=== PATIENT | male | born 1935 | race Caucasian/White ===

== ENCOUNTER 2018-04-12 10:36 | Inpatient (IN) | payer MEDICARE, OTHER ==
[~2018-04-12] VITALS: Ht 177.8 cm; Wt 96.7 kg
[2018-04-12] MEDS ORDERED: ALBUTEROL SULF 2.5 MG/0.5ML(0.5%) NEB SOLN NEB ONE (11:00)
[2018-04-12] MEDS ORDERED: IPRATROPIUM BROM 0.5 MG/2.5ML INH SOL NEB ONE (11:00)
[2018-04-12] MEDS ORDERED: methylPREDNISolone SOD SUCC 125 MG/2 ML VL IV ONE (11:00)
[2018-04-12 11:14] LABS: Basophils # (auto) 0.1 uL; Basophils % (auto) 0.7 % (0.0-2.0); Eosinophils # (auto) 0.4 uL; Eosinophils % (auto) 3.2 % (0.0-7.0); Hematocrit 37.6 % (41.0-53.0); Hemoglobin 11.8 g/dL (13.5-17.5); Lymphocytes # (auto) 1.3 uL; Lymphocytes % (auto) 10.1 % (10.0-50.0); Mean Corpuscular Hemoglobin 33.8 pg (28.0-32.0); Mean Corpuscular Hgb Conc. 31.3 g/dL (32.0-36.0); Mean Corpuscular Volume 108.1 fL (80.0-100.0); Monocytes # (auto) 0.9 uL; Monocytes % (auto) 7.1 % (0.0-12.0); Neutrophils # (auto) 10.4 uL; Neutrophils % (auto) 78.9 % (37.0-80.0); Nucleated Red Blood Cells % 0.1 %; Platelet Count (auto) 238 10^3/uL (140-450); Red Blood Cells 3.48 10^6/uL (4.5-5.90); Red Cell Distribution Width 15.3 % (11.8-14.3); White Blood Cell 13.2 10^3/uL (4.4-10.8)
[2018-04-12 11:30] LABS: BUN/Creatinine Ratio 15.9; Potassium 4.2 mmol/L (3.5-5.1)
[2018-04-12] MEDS ORDERED: ACETAMINOPHEN 500 MG TAB PO ONE (11:30)
[2018-04-12 11:31] LABS: Albumin 3.7 g/dL (3.4-5.0); Bilirubin, Total 0.6 mg/dL (0.2-1.0); Calcium 8.9 mg/dL (8.5-10.1); Magnesium 2.6 mg/dL (1.6-2.6); Total Protein 7.2 g/dL (6.4-8.2)
[2018-04-12] MEDS ORDERED: METO25TA5 PO (14:37)
[2018-04-12] MEDS ORDERED: TRAM50TA2 PO (14:37)
[2018-04-12] MEDS ORDERED: RANO500T2 PO (14:37)
[2018-04-12] MEDS ORDERED: APIX5TAB PO (14:37)
[2018-04-12] MEDS ORDERED: ALL300T PO (14:37)
[2018-04-12] MEDS ORDERED: DILT180C88 PO (14:37)
[2018-04-12] MEDS ORDERED: DRON400T PO (14:37)
[2018-04-12] MEDS ORDERED: PRAV20TA3 PO (14:37)
[2018-04-12] MEDS ORDERED: FURO20TA3 PO (14:37)
[2018-04-12] MEDS ORDERED: DILTIAZEM HCL 120MG ER CAP PO ONE (15:30)
[2018-04-12] MEDS ORDERED: ALLOPURINOL 100 MG TAB PO ONE (15:30)
[2018-04-12] MEDS ORDERED: METOPROLOL TARTRATE 25 MG TAB PO ONE (15:45)
[2018-04-12] MEDS ORDERED: MORPHINE SULFATE 8mg/ml INJ SDV IV PRN ×2 (15:45)
[2018-04-12] MEDS ORDERED: DEXTROSE (50%) 50ML SYRG IV PRN (15:45)
[2018-04-12] MEDS ORDERED: FUROSEMIDE 20 MG TAB PO ONE (15:45)
[2018-04-12] MEDS ORDERED: TEMAZEPAM 15 MG CAP PO PRN (15:45)
[2018-04-12] MEDS ORDERED: ONDANSETRON HCL 4 MG/2 ML VIAL IV PRN (15:45)
[2018-04-12] MEDS ORDERED: DOCUSATE SOD 100 MG CAP PO PRN (15:45)
[2018-04-12] MEDS ORDERED: NITROGLYCERIN 0.4 MG SL TAB SL PRN (15:45)
[2018-04-12] MEDS ORDERED: traMADol HCL 50 MG TAB PO PRN (15:45)
[2018-04-12] MEDS ORDERED: cefTRIAXone 1GM/10ml IVPUSH 10 ML IV ONE (15:45)
[2018-04-12] MEDS ORDERED: ACETAMINOPHEN 325 MG TAB PO PRN (15:45)
[2018-04-12] MEDS ORDERED: ETOMIDATE (2MG/ML) 20ML VIAL IV ONE (16:05)
[2018-04-12] MEDS ORDERED: MIDAZOLAM DRIP 50 mg/50mL 50 ML IV ONE ×2 (16:05→18:38)
[2018-04-12] MEDS ORDERED: SUCCINYLCHOLINE CHLORIDE 20 MG/ML 10ML VIAL IV ONE (16:06)
[2018-04-12] MEDS ORDERED: AZITHROMYCIN 500MG/ 250ML 250 ML IV ONE (16:30)
[2018-04-12] MEDS ORDERED: NOREPINEPHRINE 8 MG/250ML KIT 250 ML IV ONE (16:35)
[2018-04-12] MEDS ORDERED: PROPOFOL 100 ML IV ONE (16:43)
[2018-04-12] MEDS ORDERED: SODIUM CHLORIDE 0.9% 1,000 ML IV ONE ×3 (16:45→17:45)
[2018-04-12] MEDS: NOREPINEPHRINE 8 MG/250ML KIT 250 ML IV SCH (16:45)
[2018-04-12] MEDS: PROPOFOL 100 ML IV SCH (16:54)
[2018-04-12] MEDS ORDERED: FAMOTIDINE 20 MG TAB PO SCH (17:00)
[2018-04-12] MEDS: ACCU-CHEK COMFORT CURVE STRIP VI SCH ×2 (17:25→22:09)
[2018-04-12] MEDS: InsuLIN REG 1unit/0.01ml Soln (100units/ml) SC SCH ×2 (17:30→22:21)
[2018-04-12 18:27] VITALS: BP 112/69
[2018-04-12] MEDS: ALBUTEROL SULF 2.5 MG/0.5ML(0.5%) NEB SOLN NEB SCH (18:27)
[2018-04-12] MEDS: IPRATROPIUM BROM 0.5 MG/2.5ML INH SOL NEB SCH (18:27)
[2018-04-12] MEDS ORDERED: FAMOTIDINE (10MG/ML) 2ML VL IV ONE (18:30)
[2018-04-12] MEDS: MIDAZOLAM DRIP 50 mg/50mL 50 ML IV SCH (18:51)
[2018-04-12] MEDS ORDERED: SODIUM BICARBONATE 8.4% INJ 50ML SYRINGE ONE (18:55)
[2018-04-12] MEDS ORDERED: SODIUM BICARBONATE 8.4 % INJ 50ML VIAL IV ONE (19:00)
[2018-04-12 19:08] LABS: Urine Amorphous Crystal FEW /hpf (None Seen); Urine Bacteria NONE SEEN /hpf (None Seen); Urine Blood 2+ /uL (Negative); Urine Hyaline Cast FEW /lpf (0 - 2); Urine Mucus FEW (None Seen); Urine Specific Gravity 1.025 (1.001-1.035); Urine WBC 1 /hpf (0 - 3)
[2018-04-12] MEDS: fentaNYL Drip 2500mCg/250mlNS 250 ML IV SCH (19:44)
[2018-04-12 19:57] VITALS: BP 109/71
[2018-04-12 20:53] VITALS: BP 109/71
[2018-04-12] MEDS: METOPROLOL TARTRATE 25 MG TAB PO SCH (22:00)
[2018-04-12] MEDS: DRONEDARONE HCL 400 MG TAB PO SCH (22:00)
[2018-04-12] MEDS: APIXABAN 5 MG TAB PO SCH (22:20)
[2018-04-12] MEDS: SODIUM CHLOR 0.9% PF (SALINE LOCK) 10ML VIAL/SYR IV SCH (22:20)
[2018-04-12] MEDS: PRAVASTATIN SODIUM 20 MG TAB PO SCH (22:21)
[2018-04-12 22:35] VITALS: BP 126/81
[2018-04-13] VITALS (67 sets, daily range): BP systolic 88–128; BP diastolic 46–77
[2018-04-13] MEDS: ALBUTEROL SULF 2.5 MG/0.5ML(0.5%) NEB SOLN NEB SCH ×4 (00:29→18:40)
[2018-04-13] MEDS: IPRATROPIUM BROM 0.5 MG/2.5ML INH SOL NEB SCH ×4 (00:29→18:40)
[2018-04-13 05:14] LABS: Basophils # (auto) 0.1 uL; Basophils % (auto) 0.6 % (0.0-2.0); Eosinophils # (auto) 0 uL; Eosinophils % (auto) 0.1 % (0.0-7.0); Hemoglobin 10.5 g/dL (13.5-17.5); Lymphocytes # (auto) 1.3 uL; Lymphocytes % (auto) 10.2 % (10.0-50.0)
[2018-04-13 05:16] LABS: Hematocrit 32.1 % (41.0-53.0); Mean Corpuscular Hemoglobin 34.4 pg (28.0-32.0); Mean Corpuscular Hgb Conc. 32.6 g/dL (32.0-36.0); Mean Corpuscular Volume 105.6 fL (80.0-100.0); Monocytes # (auto) 1.4 uL; Monocytes % (auto) 11.3 % (0.0-12.0); Neutrophils # (auto) 9.8 uL; Neutrophils % (auto) 77.8 % (37.0-80.0); Platelet Count (auto) 237 10^3/uL (140-450); Red Blood Cells 3.04 10^6/uL (4.5-5.90); White Blood Cell 12.6 10^3/uL (4.4-10.8)
[2018-04-13 05:32] LABS: Calcium 8.2 mg/dL (8.5-10.1); Potassium 4.4 mmol/L (3.5-5.1)
[2018-04-13 05:36] LABS: BUN/Creatinine Ratio 16.5
[2018-04-13 05:37] LABS: Bilirubin, Total 0.4 mg/dL (0.2-1.0); Total Protein 6.4 g/dL (6.4-8.2)
[2018-04-13] MEDS: ACCU-CHEK COMFORT CURVE STRIP VI SCH ×4 (06:08→22:23)
[2018-04-13] MEDS: SODIUM CHLOR 0.9% PF (SALINE LOCK) 10ML VIAL/SYR IV SCH ×3 (06:08→22:26)
[2018-04-13] MEDS: FUROSEMIDE 20 MG TAB PO SCH ×2 (06:27→17:55)
[2018-04-13] MEDS: InsuLIN REG 1unit/0.01ml Soln (100units/ml) SC SCH ×4 (06:27→22:00)
[2018-04-13] MEDS: DRONEDARONE HCL 400 MG TAB PO SCH ×2 (08:37→22:22)
[2018-04-13] MEDS: METOPROLOL TARTRATE 25 MG TAB PO SCH ×2 (09:10→22:22)
[2018-04-13] MEDS: cefTRIAXone 1GM/10ml IVPUSH 10 ML IV SCH (09:17)
[2018-04-13] MEDS: AZITHROMYCIN 500MG/ 250ML 250 ML IV SCH (09:17)
[2018-04-13] MEDS ORDERED: DILTIAZEM HCL 120MG ER CAP PO SCH (10:00)
[2018-04-13] MEDS: MULTIPLE VITAMIN TAB PO SCH (11:29)
[2018-04-13] MEDS: ALLOPURINOL 100 MG TAB PO SCH (11:29)
[2018-04-13] MEDS: APIXABAN 5 MG TAB PO SCH ×2 (11:29→22:22)
[2018-04-13] MEDS: FAMOTIDINE (10MG/ML) 2ML VL IV SCH (11:29)
[2018-04-13] MEDS: RANOLAZINE ER 500 MG TAB PO SCH (11:40)
[2018-04-13] MEDS: MIDAZOLAM DRIP 50 mg/50mL 50 ML IV SCH (14:35)
[2018-04-13] MEDS: ALBUMIN 25% 100 ML IV SCH ×2 (15:35→22:23)
[2018-04-13] MEDS: NOREPINEPHRINE 8 MG/250ML KIT 250 ML IV SCH (16:45)
[2018-04-13] MEDS: PROPOFOL 100 ML IV SCH (16:54)
[2018-04-13] MEDS: fentaNYL Drip 2500mCg/250mlNS 250 ML IV SCH (18:52)
[2018-04-13] MEDS: PRAVASTATIN SODIUM 20 MG TAB PO SCH (22:22)
[2018-04-13] MEDS: methylPREDNISolone SOD SUCC 125 MG/2 ML VL IV SCH (22:22)
[2018-04-14] VITALS (106 sets, daily range): BP systolic 76–117; BP diastolic 34–76
[2018-04-14] MEDS: ALBUTEROL SULF 2.5 MG/0.5ML(0.5%) NEB SOLN NEB SCH ×5 (00:36→23:56)
[2018-04-14] MEDS: IPRATROPIUM BROM 0.5 MG/2.5ML INH SOL NEB SCH ×5 (00:36→23:56)
[2018-04-14] MEDS: PROPOFOL 100 ML IV SCH ×3 (00:52→17:12)
[2018-04-14] MEDS: MIDAZOLAM DRIP 50 mg/50mL 50 ML IV SCH ×2 (00:53→03:08)
[2018-04-14 04:01] LABS: Basophils # (auto) 0 uL; Eosinophils # (auto) 0 uL; Monocytes # (auto) 0.2 uL; White Blood Cell 9.2 10^3/uL (4.4-10.8)
[2018-04-14 04:06] LABS: Basophils % (auto) 0.2 % (0.0-2.0); Eosinophils % (auto) 0.4 % (0.0-7.0); Hematocrit 30.7 % (41.0-53.0); Hemoglobin 10.3 g/dL (13.5-17.5); Lymphocytes # (auto) 0.7 uL; Lymphocytes % (auto) 7.7 % (10.0-50.0); Mean Corpuscular Hemoglobin 34.9 pg (28.0-32.0); Mean Corpuscular Hgb Conc. 33.7 g/dL (32.0-36.0); Mean Corpuscular Volume 103.6 fL (80.0-100.0); Monocytes % (auto) 2.2 % (0.0-12.0); Neutrophils # (auto) 8.2 uL; Neutrophils % (auto) 89.5 % (37.0-80.0); Platelet Count (auto) 175 10^3/uL (140-450); Red Blood Cells 2.96 10^6/uL (4.5-5.90); Red Cell Distribution Width 15.1 % (11.8-14.3)
[2018-04-14 04:23] LABS: BUN/Creatinine Ratio 17.1; Calcium 8.3 mg/dL (8.5-10.1); Magnesium 2.5 mg/dL (1.6-2.6)
[2018-04-14] MEDS ORDERED: DILTIAZEM HCL 25 MG/5 ML VIAL IV ONE (05:00)
[2018-04-14] MEDS: FUROSEMIDE 20 MG TAB PO SCH ×2 (05:36→17:52)
[2018-04-14] MEDS: methylPREDNISolone SOD SUCC 125 MG/2 ML VL IV SCH ×3 (05:36→22:33)
[2018-04-14] MEDS: SODIUM CHLOR 0.9% PF (SALINE LOCK) 10ML VIAL/SYR IV SCH ×4 (06:00→22:35)
[2018-04-14] MEDS: ACCU-CHEK COMFORT CURVE STRIP VI SCH ×4 (06:29→22:34)
[2018-04-14] MEDS: InsuLIN REG 1unit/0.01ml Soln (100units/ml) SC SCH ×4 (06:30→22:34)
[2018-04-14] MEDS ORDERED: AMIODARONE HCL 150 MG in D5W 5% 100 ML IV ONE ×5 (06:45→08:30)
[2018-04-14] MEDS: ALBUMIN 25% 100 ML IV SCH ×4 (06:50→20:30)
[2018-04-14] MEDS ORDERED: AMIODARONE HCL 900 MG in DEXTROSE 500 ML IV SCH ×6 (06:52→14:29)
[2018-04-14] MEDS: fentaNYL Drip 2500mCg/250mlNS 250 ML IV SCH (07:50)
[2018-04-14] MEDS: FAMOTIDINE (10MG/ML) 2ML VL IV SCH (10:00)
[2018-04-14] MEDS: AZITHROMYCIN 500MG/ 250ML 250 ML IV SCH (10:00)
[2018-04-14] MEDS: cefTRIAXone 1GM/10ml IVPUSH 10 ML IV SCH (10:00)
[2018-04-14] MEDS: METOPROLOL TARTRATE 25 MG TAB PO SCH (10:01)
[2018-04-14] MEDS: APIXABAN 5 MG TAB PO SCH ×2 (10:01→22:34)
[2018-04-14] MEDS: MULTIPLE VITAMIN TAB PO SCH (10:01)
[2018-04-14] MEDS: ALLOPURINOL 100 MG TAB PO SCH (10:01)
[2018-04-14] MEDS: RANOLAZINE ER 500 MG TAB PO SCH (10:08)
[2018-04-14] MEDS ORDERED: LIDOCAINE 1% (LOCAL ANESTH.) PF 5ml SDV ID ONE (13:15)
[2018-04-14] MEDS: AMIODARONE HCL 900 MG in DEXTROSE 500 ML IV SCH ×2 (14:34→15:57)
[2018-04-14] MEDS ORDERED: Diabetisource AC 1 Liter GT SCH (15:00)
[2018-04-14] MEDS: NOREPINEPHRINE 8 MG/250ML KIT 250 ML IV SCH (16:45)
[2018-04-14] MEDS: PRAVASTATIN SODIUM 20 MG TAB PO SCH (22:33)
[2018-04-14] MEDS: SOTALOL HCL 80 MG TAB PO SCH (22:34)
[2018-04-15] VITALS (103 sets, daily range): BP systolic 79–162; BP diastolic 41–106
[2018-04-15] MEDS: PROPOFOL 100 ML IV SCH ×2 (01:34→09:34)
[2018-04-15 03:52] LABS: Basophils # (auto) 0 uL; Eosinophils # (auto) 0 uL; Hemoglobin 10.7 g/dL (13.5-17.5)
[2018-04-15 03:55] LABS: Basophils % (auto) 0.1 % (0.0-2.0); Hematocrit 32.9 % (41.0-53.0); Lymphocytes # (auto) 1.1 uL; Lymphocytes % (auto) 7.1 % (10.0-50.0); Mean Corpuscular Hemoglobin 33.7 pg (28.0-32.0); Mean Corpuscular Hgb Conc. 32.4 g/dL (32.0-36.0); Mean Corpuscular Volume 103.8 fL (80.0-100.0); Monocytes % (auto) 5.9 % (0.0-12.0); Neutrophils # (auto) 13.9 uL; Neutrophils % (auto) 86.9 % (37.0-80.0); Platelet Count (auto) 282 10^3/uL (140-450); Red Blood Cells 3.17 10^6/uL (4.5-5.90); Red Cell Distribution Width 15.1 % (11.8-14.3)
[2018-04-15 04:08] LABS: BUN/Creatinine Ratio 19.4; Potassium 4.5 mmol/L (3.5-5.1)
[2018-04-15 04:09] LABS: Calcium 8.8 mg/dL (8.5-10.1); Magnesium 2.6 mg/dL (1.6-2.6)
[2018-04-15] MEDS: fentaNYL Drip 2500mCg/250mlNS 250 ML IV SCH ×3 (04:33→17:51)
[2018-04-15] MEDS: ALBUMIN 25% 100 ML IV SCH (05:36)
[2018-04-15] MEDS: FUROSEMIDE 20 MG TAB PO SCH ×2 (06:13→18:05)
[2018-04-15] MEDS: methylPREDNISolone SOD SUCC 125 MG/2 ML VL IV SCH ×3 (06:13→21:38)
[2018-04-15] MEDS: ACCU-CHEK COMFORT CURVE STRIP VI SCH ×3 (06:14→18:06)
[2018-04-15] MEDS: SODIUM CHLOR 0.9% PF (SALINE LOCK) 10ML VIAL/SYR IV SCH ×3 (06:14→21:38)
[2018-04-15] MEDS: InsuLIN REG 1unit/0.01ml Soln (100units/ml) SC SCH ×3 (06:14→18:06)
[2018-04-15] MEDS: IPRATROPIUM BROM 0.5 MG/2.5ML INH SOL NEB SCH ×3 (06:31→18:41)
[2018-04-15] MEDS: ALBUTEROL SULF 2.5 MG/0.5ML(0.5%) NEB SOLN NEB SCH ×3 (06:31→18:41)
[2018-04-15] MEDS ORDERED: DEXTROSE (50%) 50ML SYRG IV PRN (08:30)
[2018-04-15] MEDS: APIXABAN 5 MG TAB PO SCH ×2 (09:33→21:38)
[2018-04-15] MEDS: ALLOPURINOL 100 MG TAB PO SCH (09:33)
[2018-04-15] MEDS: MULTIPLE VITAMIN TAB PO SCH (09:33)
[2018-04-15] MEDS: FAMOTIDINE (10MG/ML) 2ML VL IV SCH (09:34)
[2018-04-15] MEDS: cefTRIAXone 1GM/10ml IVPUSH 10 ML IV SCH (09:34)
[2018-04-15] MEDS: SOTALOL HCL 80 MG TAB PO SCH ×2 (09:34→21:38)
[2018-04-15] MEDS: AZITHROMYCIN 500MG/ 250ML 250 ML IV SCH (09:34)
[2018-04-15] MEDS: RANOLAZINE ER 500 MG TAB PO SCH (09:36)
[2018-04-15] MEDS ORDERED: MIDAZOLAM HCL 1MG/1ML-2 ML VIAL IV PRN (14:45)
[2018-04-15] MEDS ORDERED: MORPHINE SULFATE 10 MG/ML INJ 1ML SDV IV PRN ×2 (15:15)
[2018-04-15] MEDS: MIDAZOLAM HCL 1MG/1ML-2 ML VIAL IV PRN ×4 (15:51→22:20)
[2018-04-15] MEDS: NOREPINEPHRINE 8 MG/250ML KIT 250 ML IV SCH (16:45)
[2018-04-15] MEDS: PRAVASTATIN SODIUM 20 MG TAB PO SCH (21:38)
[2018-04-16] VITALS (62 sets, daily range): BP systolic 91–157; BP diastolic 50–98
[2018-04-16] MEDS: IPRATROPIUM BROM 0.5 MG/2.5ML INH SOL NEB SCH ×5 (00:18→19:28)
[2018-04-16] MEDS: ALBUTEROL SULF 2.5 MG/0.5ML(0.5%) NEB SOLN NEB SCH ×5 (00:18→19:28)
[2018-04-16] MEDS: InsuLIN REG 1unit/0.01ml Soln (100units/ml) SC SCH ×5 (00:25→23:49)
[2018-04-16] MEDS: ACCU-CHEK COMFORT CURVE STRIP VI SCH ×5 (00:26→23:49)
[2018-04-16] MEDS: MIDAZOLAM HCL 1MG/1ML-2 ML VIAL IV PRN ×2 (02:26→04:23)
[2018-04-16 04:02] LABS: Basophils # (auto) 0 uL; Basophils % (auto) 0.2 % (0.0-2.0); Eosinophils # (auto) 0 uL; Hematocrit 33.2 % (41.0-53.0); Hemoglobin 11.1 g/dL (13.5-17.5); Lymphocytes # (auto) 0.9 uL; Lymphocytes % (auto) 6.3 % (10.0-50.0); Mean Corpuscular Hemoglobin 33.8 pg (28.0-32.0); Mean Corpuscular Hgb Conc. 33.3 g/dL (32.0-36.0); Mean Corpuscular Volume 101.5 fL (80.0-100.0); Monocytes # (auto) 0.8 uL; Monocytes % (auto) 5.9 % (0.0-12.0); Neutrophils # (auto) 12.5 uL; Neutrophils % (auto) 87.6 % (37.0-80.0); Platelet Count (auto) 244 10^3/uL (140-450); Red Blood Cells 3.27 10^6/uL (4.5-5.90); White Blood Cell 14.3 10^3/uL (4.4-10.8)
[2018-04-16 04:19] LABS: Calcium 9.1 mg/dL (8.5-10.1); Magnesium 2.5 mg/dL (1.6-2.6); Potassium 3.9 mmol/L (3.5-5.1)
[2018-04-16] MEDS: FUROSEMIDE 20 MG TAB PO SCH ×2 (06:57→18:00)
[2018-04-16] MEDS: methylPREDNISolone SOD SUCC 125 MG/2 ML VL IV SCH ×3 (06:58→21:39)
[2018-04-16] MEDS: RANOLAZINE ER 500 MG TAB PO SCH (07:51)
[2018-04-16] MEDS: SODIUM CHLORIDE 0.9% 1,000 ML IV SCH ×2 (08:45→20:38)
[2018-04-16] MEDS: cefTRIAXone 1GM/10ml IVPUSH 10 ML IV SCH (09:19)
[2018-04-16] MEDS: FAMOTIDINE (10MG/ML) 2ML VL IV SCH (10:09)
[2018-04-16] MEDS: AZITHROMYCIN 500MG/ 250ML 250 ML IV SCH (10:10)
[2018-04-16] MEDS: APIXABAN 5 MG TAB PO SCH ×2 (10:11→21:38)
[2018-04-16] MEDS: MULTIPLE VITAMIN TAB PO SCH (10:11)
[2018-04-16] MEDS: SOTALOL HCL 80 MG TAB PO SCH ×2 (10:12→21:43)
[2018-04-16] MEDS: ALLOPURINOL 100 MG TAB PO SCH (10:12)
[2018-04-16] MEDS: SODIUM CHLOR 0.9% PF (SALINE LOCK) 10ML VIAL/SYR IV SCH ×2 (10:21→21:44)
[2018-04-16] MEDS: SILDENAFIL CITRATE 20 MG TAB PO SCH ×2 (15:45→20:43)
[2018-04-16] MEDS: NOREPINEPHRINE 8 MG/250ML KIT 250 ML IV SCH (16:45)
[2018-04-16] MEDS: PRAVASTATIN SODIUM 20 MG TAB PO SCH (21:38)
[2018-04-16 22:22] LABS: Creatinine, Urine 56 mg/dL (30.0-125.0); Sodium Urine 44 mmol/L (40-220)
[2018-04-17] VITALS (23 sets, daily range): BP systolic 98–129; BP diastolic 48–98
[2018-04-17] MEDS: ALBUTEROL SULF 2.5 MG/0.5ML(0.5%) NEB SOLN NEB SCH ×4 (00:03→18:46)
[2018-04-17] MEDS: IPRATROPIUM BROM 0.5 MG/2.5ML INH SOL NEB SCH ×4 (00:03→18:46)
[2018-04-17 04:03] LABS: Basophils # (auto) 0 uL; Basophils % (auto) 0.2 % (0.0-2.0); Eosinophils # (auto) 0 uL; Hematocrit 29.7 % (41.0-53.0); Hemoglobin 10.1 g/dL (13.5-17.5); Lymphocytes # (auto) 0.7 uL; Lymphocytes % (auto) 6.4 % (10.0-50.0); Mean Corpuscular Hemoglobin 34.7 pg (28.0-32.0); Mean Corpuscular Hgb Conc. 34.1 g/dL (32.0-36.0); Mean Corpuscular Volume 101.9 fL (80.0-100.0); Monocytes # (auto) 0.7 uL; Monocytes % (auto) 6.7 % (0.0-12.0); Neutrophils # (auto) 9.2 uL; Neutrophils % (auto) 86.7 % (37.0-80.0); Nucleated Red Blood Cells % 0.1 %; Platelet Count (auto) 197 10^3/uL (140-450); Red Blood Cells 2.92 10^6/uL (4.5-5.90); Red Cell Distribution Width 14.3 % (11.8-14.3); White Blood Cell 10.6 10^3/uL (4.4-10.8)
[2018-04-17] MEDS: SODIUM CHLORIDE 0.9% 1,000 ML IV SCH ×3 (04:45→22:00)
[2018-04-17 04:48] LABS: BUN/Creatinine Ratio 33.7; Calcium 8.5 mg/dL (8.5-10.1); Potassium 3.8 mmol/L (3.5-5.1)
[2018-04-17] MEDS: methylPREDNISolone SOD SUCC 125 MG/2 ML VL IV SCH ×3 (05:52→21:39)
[2018-04-17] MEDS: FUROSEMIDE 20 MG TAB PO SCH ×2 (05:52→17:23)
[2018-04-17] MEDS: ACCU-CHEK COMFORT CURVE STRIP VI SCH ×4 (05:57→23:41)
[2018-04-17] MEDS: InsuLIN REG 1unit/0.01ml Soln (100units/ml) SC SCH ×4 (06:16→23:40)
[2018-04-17] MEDS: SOTALOL HCL 80 MG TAB PO SCH ×2 (10:00→21:48)
[2018-04-17] MEDS: MULTIPLE VITAMIN TAB PO SCH (10:00)
[2018-04-17] MEDS: cefTRIAXone 1GM/10ml IVPUSH 10 ML IV SCH (10:00)
[2018-04-17] MEDS: ALLOPURINOL 100 MG TAB PO SCH (10:00)
[2018-04-17] MEDS: APIXABAN 5 MG TAB PO SCH ×2 (10:00→21:39)
[2018-04-17] MEDS: FAMOTIDINE (10MG/ML) 2ML VL IV SCH (10:27)
[2018-04-17] MEDS: AZITHROMYCIN 500MG/ 250ML 250 ML IV SCH (10:28)
[2018-04-17] MEDS: SODIUM CHLOR 0.9% PF (SALINE LOCK) 10ML VIAL/SYR IV SCH ×2 (10:28→21:39)
[2018-04-17] MEDS: RANOLAZINE ER 500 MG TAB PO SCH (10:35)
[2018-04-17] MEDS: SILDENAFIL CITRATE 20 MG TAB PO SCH ×3 (10:35→19:57)
[2018-04-17] MEDS: PRAVASTATIN SODIUM 20 MG TAB PO SCH (21:39)
[2018-04-18] MEDS: ALBUTEROL SULF 2.5 MG/0.5ML(0.5%) NEB SOLN NEB SCH ×4 (00:31→18:40)
[2018-04-18] MEDS: IPRATROPIUM BROM 0.5 MG/2.5ML INH SOL NEB SCH ×4 (00:31→18:40)
[2018-04-18 05:47] VITALS: BP 123/66
[2018-04-18] MEDS: FUROSEMIDE 20 MG TAB PO SCH ×2 (05:51→17:43)
[2018-04-18] MEDS: ACCU-CHEK COMFORT CURVE STRIP VI SCH ×3 (05:52→17:37)
[2018-04-18] MEDS: InsuLIN REG 1unit/0.01ml Soln (100units/ml) SC SCH ×3 (05:52→17:37)
[2018-04-18] MEDS: methylPREDNISolone SOD SUCC 125 MG/2 ML VL IV SCH (05:52)
[2018-04-18 05:59] LABS: Basophils # (auto) 0 uL; Basophils % (auto) 0.1 % (0.0-2.0); Eosinophils # (auto) 0 uL; Hemoglobin 10.5 g/dL (13.5-17.5); Lymphocytes # (auto) 0.6 uL; Neutrophils # (auto) 8.6 uL; Neutrophils % (auto) 84.6 % (37.0-80.0); White Blood Cell 10.2 10^3/uL (4.4-10.8)
[2018-04-18 06:01] LABS: Hematocrit 30.4 % (41.0-53.0); Lymphocytes % (auto) 5.5 % (10.0-50.0); Mean Corpuscular Hemoglobin 34.8 pg (28.0-32.0); Mean Corpuscular Hgb Conc. 34.5 g/dL (32.0-36.0); Mean Corpuscular Volume 100.7 fL (80.0-100.0); Monocytes % (auto) 9.8 % (0.0-12.0); Platelet Count (auto) 222 10^3/uL (140-450); Red Blood Cells 3.02 10^6/uL (4.5-5.90)
[2018-04-18 06:19] LABS: BUN/Creatinine Ratio 34.8; Calcium 8.4 mg/dL (8.5-10.1); Potassium 3.7 mmol/L (3.5-5.1)
[2018-04-18 09:00] VITALS: BP 127/70
[2018-04-18] MEDS: SILDENAFIL CITRATE 20 MG TAB PO SCH ×3 (10:39→19:57)
[2018-04-18] MEDS: FAMOTIDINE (10MG/ML) 2ML VL IV SCH (10:39)
[2018-04-18] MEDS: cefTRIAXone 1GM/10ml IVPUSH 10 ML IV SCH (10:39)
[2018-04-18] MEDS: SOTALOL HCL 80 MG TAB PO SCH ×2 (10:40→21:56)
[2018-04-18] MEDS: AZITHROMYCIN 500MG/ 250ML 250 ML IV SCH (10:40)
[2018-04-18] MEDS: APIXABAN 5 MG TAB PO SCH ×2 (10:40→21:56)
[2018-04-18] MEDS: SODIUM CHLOR 0.9% PF (SALINE LOCK) 10ML VIAL/SYR IV SCH ×2 (10:40→21:56)
[2018-04-18] MEDS: MULTIPLE VITAMIN TAB PO SCH (10:41)
[2018-04-18] MEDS: RANOLAZINE ER 500 MG TAB PO SCH (10:41)
[2018-04-18] MEDS: ALLOPURINOL 100 MG TAB PO SCH (10:41)
[2018-04-18] MEDS: SODIUM CHLORIDE 0.9% 1,000 ML IV SCH ×2 (10:41→19:57)
[2018-04-18 12:29] VITALS: BP 100/67
[2018-04-18 17:00] VITALS: BP 101/59
[2018-04-18] MEDS: PRAVASTATIN SODIUM 20 MG TAB PO SCH (21:56)
[2018-04-18 22:00] VITALS: BP 103/55
[2018-04-18] MEDS: HYDROcodone-ACET 5/325MG TAB PO PRN (23:14)
[2018-04-19] MEDS: ACCU-CHEK COMFORT CURVE STRIP VI SCH ×4 (00:10→18:27)
[2018-04-19] MEDS: IPRATROPIUM BROM 0.5 MG/2.5ML INH SOL NEB SCH ×4 (00:23→19:13)
[2018-04-19] MEDS: ALBUTEROL SULF 2.5 MG/0.5ML(0.5%) NEB SOLN NEB SCH ×4 (00:23→19:13)
[2018-04-19] MEDS: HYDROcodone-ACET 5/325MG TAB PO PRN ×3 (03:25→22:07)
[2018-04-19] MEDS: InsuLIN REG 1unit/0.01ml Soln (100units/ml) SC SCH ×4 (05:46→18:27)
[2018-04-19] MEDS: FUROSEMIDE 20 MG TAB PO SCH ×2 (05:46→17:36)
[2018-04-19] MEDS: SODIUM CHLORIDE 0.9% 1,000 ML IV SCH (05:47)
[2018-04-19 05:49] VITALS: BP 110/67
[2018-04-19 06:27] LABS: BUN/Creatinine Ratio 33.8; Calcium 8.1 mg/dL (8.5-10.1); Potassium 3.1 mmol/L (3.5-5.1)
[2018-04-19 08:52] VITALS: BP 113/65
[2018-04-19] MEDS: AZITHROMYCIN 500MG/ 250ML 250 ML IV SCH (09:23)
[2018-04-19] MEDS: cefTRIAXone 1GM/10ml IVPUSH 10 ML IV SCH (09:24)
[2018-04-19] MEDS: FAMOTIDINE (10MG/ML) 2ML VL IV SCH (09:24)
[2018-04-19] MEDS: SILDENAFIL CITRATE 20 MG TAB PO SCH ×3 (09:25→20:17)
[2018-04-19] MEDS: ALLOPURINOL 100 MG TAB PO SCH (09:25)
[2018-04-19] MEDS: MULTIPLE VITAMIN TAB PO SCH (09:26)
[2018-04-19] MEDS: APIXABAN 5 MG TAB PO SCH ×2 (09:26→21:24)
[2018-04-19] MEDS: SOTALOL HCL 80 MG TAB PO SCH ×2 (09:28→21:23)
[2018-04-19] MEDS ORDERED: predniSONE 20 MG TAB PO SCH ×2 (10:00)
[2018-04-19] MEDS: SODIUM CHLOR 0.9% PF (SALINE LOCK) 10ML VIAL/SYR IV SCH ×2 (12:48→21:23)
[2018-04-19 13:00] VITALS: BP 106/58
[2018-04-19] MEDS: FLUCONAZOLE 100 MG TAB PO SCH (13:03)
[2018-04-19] MEDS: POTASSIUM CHL 20 Meq TABLET PO SCH ×2 (13:03→21:24)
[2018-04-19] MEDS: RANOLAZINE ER 500 MG TAB PO SCH (13:05)
[2018-04-19 17:00] VITALS: BP 95/65
[2018-04-19] MEDS: PRAVASTATIN SODIUM 20 MG TAB PO SCH (21:23)
[2018-04-19 22:00] VITALS: BP 91/48
[2018-04-20] MEDS: IPRATROPIUM BROM 0.5 MG/2.5ML INH SOL NEB SCH ×3 (00:43→11:50)
[2018-04-20] MEDS: ALBUTEROL SULF 2.5 MG/0.5ML(0.5%) NEB SOLN NEB SCH ×3 (00:43→11:50)
[2018-04-20] MEDS: InsuLIN REG 1unit/0.01ml Soln (100units/ml) SC SCH ×3 (00:54→15:30)
[2018-04-20] MEDS: ACCU-CHEK COMFORT CURVE STRIP VI SCH ×3 (00:54→15:31)
[2018-04-20 05:00] VITALS: BP 114/66
[2018-04-20] MEDS: FUROSEMIDE 20 MG TAB PO SCH (06:04)
[2018-04-20 09:00] VITALS: BP 112/58
[2018-04-20] MEDS ORDERED: predniSONE 20 MG TAB PO SCH (10:00)
[2018-04-20] MEDS: cefTRIAXone 1GM/10ml IVPUSH 10 ML IV SCH (10:02)
[2018-04-20] MEDS: FAMOTIDINE (10MG/ML) 2ML VL IV SCH (10:02)
[2018-04-20] MEDS: APIXABAN 5 MG TAB PO SCH (10:03)
[2018-04-20] MEDS: POTASSIUM CHL 20 Meq TABLET PO SCH (10:03)
[2018-04-20] MEDS: SILDENAFIL CITRATE 20 MG TAB PO SCH ×2 (10:03→14:00)
[2018-04-20] MEDS: FLUCONAZOLE 100 MG TAB PO SCH (10:03)
[2018-04-20] MEDS: MULTIPLE VITAMIN TAB PO SCH (10:05)
[2018-04-20] MEDS: SOTALOL HCL 80 MG TAB PO SCH (10:05)
[2018-04-20] MEDS: AZITHROMYCIN 500MG/ 250ML 250 ML IV SCH (10:05)
[2018-04-20] MEDS: RANOLAZINE ER 500 MG TAB PO SCH (10:06)
[2018-04-20] MEDS: ALLOPURINOL 100 MG TAB PO SCH (11:15)
[2018-04-20] MEDS: SODIUM CHLOR 0.9% PF (SALINE LOCK) 10ML VIAL/SYR IV SCH (11:15)
[2018-04-20 13:00] VITALS: BP 121/72
[2018-04-20] MEDS: HYDROcodone-ACET 5/325MG TAB PO PRN (13:57)
== END 2018-04-20 15:00 | disposition home health service (06) | DRG 871 ==
LOC: ER 10:36 → OVERFLOW 10:37 → ICU WEST 04-13 09:50 → TELE-EAST 04-17 11:13
PROVIDERS: ADMIT Internal Medicine; ATTEND Internal Medicine
PROC: 5A1945Z Respiratory Ventilation, 24-96 Consecutive Hours (ICD-10-PCS; principal; 2018-04-12)
PROC: 0BH17EZ Insertion of Endotracheal Airway into Trachea, Via Natural or Artificial Opening (ICD-10-PCS; 2018-04-12)
PROC: 5A09357 Assistance with Respiratory Ventilation, Less than 24 Consecutive Hours, Continuous Positive Airway Pressure (ICD-10-PCS; 2018-04-12)
PROC: 02HV33Z Insertion of Infusion Device into Superior Vena Cava, Percutaneous Approach (ICD-10-PCS; 2018-04-14)
DX: A41.9 Sepsis, unspecified organism (principal); J96.01 Acute respiratory failure with hypoxia; N17.0 Acute kidney failure with tubular necrosis; J44.0 Chronic obstructive pulmonary disease with (acute) lower respiratory infection; J18.1 Lobar pneumonia, unspecified organism; E11.21 Type 2 diabetes mellitus with diabetic nephropathy; J96.02 Acute respiratory failure with hypercapnia; E11.65 Type 2 diabetes mellitus with hyperglycemia; J45.901 Unspecified asthma with (acute) exacerbation; E44.1 Mild protein-calorie malnutrition; J84.10 Pulmonary fibrosis, unspecified; J96.21 Acute and chronic respiratory failure with hypoxia; E87.2 Acidosis; J44.1 Chronic obstructive pulmonary disease with (acute) exacerbation; J84.89 Other specified interstitial pulmonary diseases; I11.9 Hypertensive heart disease without heart failure; N18.3 Chronic kidney disease, stage 3 (moderate); D63.8 Anemia in other chronic diseases classified elsewhere; M10.9 Gout, unspecified; E78.5 Hyperlipidemia, unspecified; E11.22 Type 2 diabetes mellitus with diabetic chronic kidney disease; Z68.30 Body mass index [BMI] 30.0-30.9, adult; I25.10 Atherosclerotic heart disease of native coronary artery without angina pectoris; I48.91 Unspecified atrial fibrillation; Z95.5 Presence of coronary angioplasty implant and graft; Z99.3 Dependence on wheelchair; Z79.899 Other long term (current) drug therapy; Z82.49 Family history of ischemic heart disease and other diseases of the circulatory system; Z99.81 Dependence on supplemental oxygen
CPT/HCPCS: 31500; 36415; 36569; 36600; 51702; 71045; 71250; 80048; 80053; 81001; 82570; 82805; 82962; 83036; 83735; 84300; 84484; 85025; 87040; 87070; 87081; 87086; 87205; 93005; 93306; 94002; 94003; 94640; 94660; 96361; 96365; 96375; 97110; 97116; 97163; 97530; 99291; G0378; J0330; J1815; J2250; J2704; J3490; J7060; P9047